=== PATIENT | female | born 1960 | race Caucasian/White ===

== ENCOUNTER 2017-01-12 10:43 | Day surgery (SDC) | payer OTHER ==
[~2017-01-12] VITALS: Ht 162.6 cm; Wt 90.0 kg
[~2017-01-12 10:43] MED LIST: ALTACE5 MG PO; ASPIR 8181 M1 PO; CYANOCOBAL1000 MCG/2 IM; LEVOXYL100 MCG PO; LIPITOR20 MG PO; LOPRESSOR25 MG PO; NITROSTAT0.4 MG SL; VITAMIN D34000 UNIT PO
[2017-01-12 11:19] VITALS: BP 113/75
[2017-01-12 15:10] VITALS: BP 152/91
[2017-01-12 16:22] VITALS: BP 144/75
== END 2017-01-12 16:24 | disposition home or self-care (01) ==
LOC: SDC 10:43
DX: H35.61 Retinal hemorrhage, right eye (principal); R73.03 Prediabetes; I10 Essential (primary) hypertension; I25.10 Atherosclerotic heart disease of native coronary artery without angina pectoris; E66.9 Obesity, unspecified; Z68.33 Body mass index [BMI] 33.0-33.9, adult; Z79.82 Long term (current) use of aspirin; Z87.891 Personal history of nicotine dependence; Z82.49 Family history of ischemic heart disease and other diseases of the circulatory system; Z83.3 Family history of diabetes mellitus; Z80.1 Family history of malignant neoplasm of trachea, bronchus and lung; Z80.8 Family history of malignant neoplasm of other organs or systems
CPT/HCPCS: J0690; J3300